=== PATIENT | female | born 1950 | race Caucasian/White ===

== ENCOUNTER → 2016-08-18 | Outpatient (CLI) | payer MEDICARE, MEDICAID | END | disposition home or self-care (01) | LOC: RAD.S 07:45 | DX: M54.2 Cervicalgia (principal); M48.54XD Collapsed vertebra, not elsewhere classified, thoracic region, subsequent encounter for fracture with routine healing; M40.204 Unspecified kyphosis, thoracic region; M54.6 Pain in thoracic spine; G89.29 Other chronic pain ==